=== PATIENT | female | born 1980 | race Caucasian/White ===

== ENCOUNTER → 2023-09-12 07:51 | Outpatient (REF) | payer BC, SELFPAY | LOC: MRI 3T 07:51 | PROVIDERS: ATTENDING PHYSICIAN Internal Medicine Gastroenterology | DX: K50.811 Crohn's disease of both small and large intestine with rectal bleeding (principal) | CPT/HCPCS: 72197; 74183; A9575 ==

== ENCOUNTER → 2023-11-08 10:31 | Outpatient (REF) | payer BC, SELFPAY | LOC: RAD 10:31 | PROVIDERS: ATTENDING PHYSICIAN Obstetrics & Gynecology; FAMILY PHYSICIAN Physician Assistant Medical | DX: N92.1 Excessive and frequent menstruation with irregular cycle (principal); N93.9 Abnormal uterine and vaginal bleeding, unspecified | CPT/HCPCS: 76830; 76856 ==

== ENCOUNTER 2024-02-28 06:19 | Day surgery (SDC) | payer BC, SELFPAY ==
[2024-02-20 09:08] LABS: % Basophils 0.7 % (0-2); % Eosinophils 3.7 % (0-6); % Immature Granulocytes 0.2 % (0-0.5); % Lymphocytes 31.6 % (20.5-51.1); % Monocytes 7.7 % (1.7-9.3); % Neutrophils 56.1 % (42.2-75.2); Absolute Eosinophils 0.2 10^3/uL (0-0.7); Absolute Lymphocytes 1.7 10^3/uL (1.2-3.4); Absolute Monocytes 0.4 10^3/uL (0.1-0.6); Absolute Neutrophils 3.1 10^3/uL (1.4-6.5); Hematocrit 38.9 % (37.0-47.0); Hemoglobin 13.6 g/dL (12.0-16.0); Mean Corpuscular Volume 85.9 fL (81.0-99.0); Mean Platelet Volume 10.7 fL (7.4-10.4); Nucleated Red Blood Cells % 0 %; Platelet Count 221 10^3/uL (130-400); Red Blood Cell Count 4.53 10^6/uL (4.20-5.40); Red Cell Dist. Width 12.7 % (11.5-14.5); White Blood Cell Count 5.5 10^3/uL (4.8-10.8)
[2024-02-20 09:52] VITALS: BMI 35.0
[2024-02-20 12:00] LABS: Blood Urea Nitrogen 9 mg/dl (7-17); Calcium 9.1 mg/dl (8.4-10.2); Carbon Dioxide 21 mmol/L (22-30); Chloride 107 mmol/L (98-107); Estimated Creatinine Clearance 105 ml/min; Glucose 92 mg/dl (70-99); Potassium 3.9 mmol/L (3.5-5.1); Sodium 138 mmol/L (135-145); eGFR > 60.00
[2024-02-20 12:15] LABS: Beta HCG Quantitative < 2.39 mIU/ml
[2024-02-28] VITALS (8 sets, daily range): BP systolic 110–140; BP diastolic 70–98; BMI 35.0
[2024-02-28] MEDS: TYLENOL 1000 MG PO (08:13)
[2024-02-28] MEDS: NORMOSOL-R 1000 IV (08:13)
--- NOTE | 2024-02-28 08:54 | W.IMMPOSTOP ---
Surgical Immed Post Op Note
-
Primary Surgeon: Vandana Gomez DO
Assisting Surgeon: none
Pre-op Diagnosis: AUB, menorrhagia, possible endometrial polyp on office biopsy
Post-op Diagnosis: same
Procedure Performed: Diagnostic hysteroscopy D&C
Anesthesia Type: general LMA Dr. Smith
Specimen / Cultures: 1. endocervical curettings 2. endometrial curettings
Estimated Blood Loss: 5ml
fluid deficit: 150ml NSS
Complications: none
Operative Findings: Uterus sounded to 8 cm; bilateral tubal ostia seen. No evidence of polyp or mass.
Counts correct times 2
Stable to recovery.
dicatated
== END 2024-02-28 10:50 | disposition home or self-care (01) ==
LOC: SDS 06:19
PROVIDERS: ATTENDING PHYSICIAN Obstetrics & Gynecology; FAMILY PHYSICIAN Family Medicine; REFERRING PHYSICIAN Internal Medicine Gastroenterology
DX: N93.9 Abnormal uterine and vaginal bleeding, unspecified (principal); N92.0 Excessive and frequent menstruation with regular cycle
CPT/HCPCS: 58558; 88305; 36415; 80048; 84702; 85025; 86850; 86900; 86901; 87070

== ENCOUNTER → 2025-01-14 07:13 | Outpatient (REF) | payer BC, SELFPAY | LOC: HWRAD 07:13 | PROVIDERS: ATTENDING PHYSICIAN Internal Medicine Gastroenterology; FAMILY PHYSICIAN Physician Assistant | DX: R74.8 Abnormal levels of other serum enzymes (principal) | CPT/HCPCS: 76700 ==

== ENCOUNTER → 2025-01-27 07:00 | Outpatient (REF) | payer BC, SELFPAY | LOC: RAD 07:00 | PROVIDERS: ATTENDING PHYSICIAN Nurse Practitioner Family | DX: T14.8XXA Other injury of unspecified body region, initial encounter (principal) | CPT/HCPCS: 93971 ==

== ENCOUNTER → 2025-04-01 14:43 | Outpatient (REF) | payer BC, SELFPAY | LOC: MRI 14:43 | PROVIDERS: ATTENDING PHYSICIAN Internal Medicine Gastroenterology; FAMILY PHYSICIAN Physician Assistant | DX: K76.0 Fatty (change of) liver, not elsewhere classified (principal) | CPT/HCPCS: 74181; 76391 ==